=== PATIENT | female | born 2000 | race Caucasian/White ===

== ENCOUNTER 2021-06-05 13:51 | Observation (INO) ==
[2021-06-05] MEDS ORDERED: Ondansetron ODT 4 mg TAB 4 MG TAB PO ONE (14:17)
[2021-06-05 17:01] LABS: ABS Lymphocytes 1.2 10^3/ul (1.0-4.8); ABS Monocytes 0.6 10^3/ul (0-0.8); ABS Neutrophils 12.7 10^3/ul (1.5-7.7); Eosinophil % 0.2 %; Hematocrit 44 % (35-47); Hemoglobin 15.4 g/dL (12.0-16.0); Lymphocyte % 8.4 %; Mean Corpuscular HGB Conc 35 g/dL (31-36); Mean Corpuscular Hemoglobin 32 pg (27-31); Mean Corpuscular Volume 92 fL (80-97); Mean Platelet Volume 6.7 fL (7.4-10.4); Platelet Count 279 10^3/uL (150-450); Red Blood Count 4.76 10^6 /uL (3.70-4.87); Red Cell Distribution Width 13 % (10-15); White Blood Count 14.6 10^3/uL (3.5-10.8)
[2021-06-05 17:24] LABS: HCG Pregnancy < 0.60 mIU/mL
[2021-06-05 17:47] LABS: ALT 14 U/L (7-52); AST 20 U/L (13-39); Albumin 4.8 g/dL (3.2-5.2); Albumin/Globulin Ratio 1.5 (1-3); Anion Gap 7 mmol/L (2-11); Blood Urea Nitrogen 10 mg/dL (6-24); CO2 Carbon Dioxide 27 mmol/L (22-32); Calcium 10.3 mg/dL (8.6-10.3); Chloride 103 mmol/L (101-111); Globulin 3.2 g/dL (2-4); Glucose 92 mg/dL (70-100); Sodium 137 mmol/L (135-145)
[2021-06-05 18:30] LABS: Alkaline Phosphatase 46 U/L (35-149)
[2021-06-05] MEDS ORDERED: NS 0.9% 1000 ml BAG 1,000 ML IV ONE (18:38)
[2021-06-05] MEDS ORDERED: Iohexol 300 (CONTRAST) 10 ML SDV IV ONE ×2 (19:36→19:38)
[2021-06-05] MEDS ORDERED: Piperacillin/Tazobac ADVAN 3.375 GM in NS 0.9% 100 ml BAG 100 ML IV ONE (23:12)
[2021-06-05 23:24] LABS: Urine Appearance Cloudy; Urine Bilirubin Negative (Negative); Urine Blood 1+ (Negative); Urine Color Yellow; Urine Glucose Negative (Negative); Urine Ketones Negative (Negative); Urine Nitrite Negative (Negative); Urine Protein Negative (Negative); Urine Specific Gravity 1.017 (1.002-1.030); Urine Urobilinogen Negative (Negative)
[2021-06-05 23:27] LABS: Urine Bacteria 1+ (Absent); Urine Red Blood Cell Trace(0-2/hpf) (Absent); Urine Squamous Epithelial Cell Present (Absent); Urine White Blood Cell Trace(0-5/hpf) (Absent)
[2021-06-05 23:30] LABS: C Reactive Protein 2.97 mg/L (<8.01)
[2021-06-05] MEDS ORDERED: Ondansetron 4 mg VIAL 2 MG/ML 2 ml VIAL IV PRN (23:33)
[2021-06-05] MEDS ORDERED: Acetaminophen IV 1 GM/100ML 100 ML IV PRN (23:38)
[2021-06-05] MEDS ORDERED: HYDROmorphone 0.5 MG/0.5 ML SYRINGE IV SLOW PU PRN (23:43)
[2021-06-06 01:43] LABS: Rapid COVID-19 Molecular Undetected (Undetected)
[2021-06-06] MEDS: Lactated Ringers 1000 ml BAG 1,000 ML IV SCH ×2 (04:35→14:25)
[2021-06-06 05:46] LABS: ABS Eosinophils 0.1 10^3/ul (0-0.6); ABS Lymphocytes 1.8 10^3/ul (1.0-4.8); ABS Monocytes 0.6 10^3/ul (0-0.8); ABS Neutrophils 7.8 10^3/ul (1.5-7.7); Eosinophil % 0.8 %; Hematocrit 38 % (35-47); Hemoglobin 13.5 g/dL (12.0-16.0); Lymphocyte % 17.5 %; Mean Corpuscular HGB Conc 35 g/dL (31-36); Mean Corpuscular Hemoglobin 32 pg (27-31); Mean Corpuscular Volume 92 fL (80-97); Mean Platelet Volume 6.8 fL (7.4-10.4); Platelet Count 242 10^3/uL (150-450); Red Blood Count 4.17 10^6 /uL (3.70-4.87); Red Cell Distribution Width 13 % (10-15); White Blood Count 10.3 10^3/uL (3.5-10.8)
[2021-06-06 06:02] LABS: C Reactive Protein 22.63 mg/L (<8.01); Calcium 9.2 mg/dL (8.6-10.3); Potassium 3.8 mmol/L (3.5-5.0)
[2021-06-06 16:23] VITALS: BP 107/62
== END 2021-06-06 18:46 | disposition home or self-care (01) ==
LOC: ED 13:51 → SSU 13:51
PROVIDERS: ADMIT Surgery Surgical Critical Care; ATTEND Surgery Surgical Critical Care